=== PATIENT | female | born 1995 | race Caucasian/White ===

== ENCOUNTER 2022-07-24 06:54 | Emergency (ER) | payer OTHER, SELFPAY ==
--- NOTE | ~2022-07-24 | US_ITS ---
EXAMINATION: US RETROPERITONEAL LIMITED (RENAL ONLY) CLINICAL INFORMATION: 5 months with abdominal pain.. COMPARISON: None available. TECHNIQUE: Routine transabdominal imaging of pelvis with attention to the OB segment is performed. Ultrasound transvaginal imaging of kidneys was performed as well. FINDINGS: RETROPERITONEUM: RIGHT KIDNEY: 10.3 x 5.1 x 4.9 cm (SAG x AP x TRV). The kidney is normal in size, contour, and echogenicity. Renal cortical thickness is normal. No calculi or focal parenchymal lesions. No hydronephrosis. LEFT KIDNEY: 10.8 x 4.7 x 4.6 cm (SAG x AP x TRV). The kidney is normal in size, contour, and echogenicity. Renal cortical thickness is normal. No calculi or focal parenchymal lesions. No hydronephrosis. OB ultrasound: There is a single live intrauterine fetus in breech presentation and a heart rate of 1 53 bpm. The placenta is anterior and right lateral within normal limits. There is good movement. The cervix is closed with mucous plug within. US/US OB limited IMPRESSION: 1. Unremarkable renal ultrasound. 2. Single live intrauterine fetus in breech presentation. The cervix is closed with mucous plug within.
--- NOTE | ~2022-07-24 | US_ITS ---
EXAMINATION: US RETROPERITONEAL LIMITED (RENAL ONLY) CLINICAL INFORMATION: 5 months with abdominal pain.. COMPARISON: None available. TECHNIQUE: Routine transabdominal imaging of pelvis with attention to the OB segment is performed. Ultrasound transvaginal imaging of kidneys was performed as well. FINDINGS: RETROPERITONEUM: RIGHT KIDNEY: 10.3 x 5.1 x 4.9 cm (SAG x AP x TRV). The kidney is normal in size, contour, and echogenicity. Renal cortical thickness is normal. No calculi or focal parenchymal lesions. No hydronephrosis. LEFT KIDNEY: 10.8 x 4.7 x 4.6 cm (SAG x AP x TRV). The kidney is normal in size, contour, and echogenicity. Renal cortical thickness is normal. No calculi or focal parenchymal lesions. No hydronephrosis. OB ultrasound: There is a single live intrauterine fetus in breech presentation and a heart rate of 1 53 bpm. The placenta is anterior and right lateral within normal limits. There is good movement. The cervix is closed with mucous plug within. US/US renal BI IMPRESSION: 1. Unremarkable renal ultrasound. 2. Single live intrauterine fetus in breech presentation. The cervix is closed with mucous plug within.
[2022-07-24 07:30] VITALS: BP 131/78; PULSE 97; RESP 16; TEMP 37.3; O2SAT 100; BMI 24.2
--- NOTE | 2022-07-24 08:11 | ED.ABDPAIN ---
HPI - Abdominal Pain General Chief Complaint: Abdominal Pain Stated Complaint: 5 mos preg, pain on L side Time Seen by Provider: 07/24/22 08:02 Source: patient and family Mode of arrival: ambulatory Limitations: no limitations History of Present Illness HPI narrative: A 27-year-old female 5 months with no significance came in for evaluation of left side lower abdominal pain started 5 hours pain is dull aching pain that has been intermittent, and localized to the left side with no radiation, no other associated nausea or vomiting with normal bowel movement, no dysuria, no vaginal bleeding. No significant past surgical history. Related Data Previous Rx's Medication Instructions Recorded cefuroxime axetil 500 mg tablet 500 mg PO Q12H #20 tabs 07/24/22 Allergies Allergy/AdvReac Type Severity Reaction Status Date / Time No Known Allergies Allergy Verified 07/24/22 07:32 Review of Systems Review of Systems All other systems are reviewed and are negative Constitutional: Reports as per HPI and Reports no additional constitutional complaints Eyes: Reports as per HPI and Reports no additional eye complaints Reports system reviewed and no additional complaints, except as documented Cardiovascular: Reports as per HPI and Reports no additional cardiovascular complaints Respiratory: Reports as per HPI and Reports no additional respiratory complaints Gastrointestinal: Reports as per HPI and Reports no additional gastrointestinal complaints Genitourinary: Reports no additional female genitourinary complaints Musculoskeletal: Reports no additional musculoskeletal complaints Skin/Breast: Reports system reviewed and no additional complaints, except as docu Psychiatric: Reports no additional psychiatric complaints Endocrine: Reports no additional endocrine complaints Hematologic/Lymphatic: Reports no additional hematologic/lymphatic complaints Allergic/Immunologic: Reports no additional allergic/immunologic complaints Reports system reviewed and no additional complaints, except as documented and Reports Abnormal speech present [facility] Social History Social History Smoked in Last 30 Days: No Use of substances other than those prescribed or required for medical reasons: No Advance Directives: No Advance Directives Information Provided: No Patient : Yes Physical Exam ED Vital Signs: Vital Signs - 24 hr 07/24/22 07:30 07/24/22 11:46 Temperature 99.2 F 98.1 F Pulse Rate 97 91 Respiratory Rate 16 16 Blood Pressure 131/78 114/67 Pulse Oximetry 100 98 Oxygen Delivery Method Room Air Room Air BMI result Body Mass Index 24.2 Vital signs have been reviewed as appeared to be correct. Blood pressure normal. Heart rate normal. Respiration rate normal. Temperature normal. Oxygen saturation normal. Appearance: Alert. Oriented X3. No acute distress. Head: Normal external exam. Normocephalic. Atraumatic. No Luz signs noted. No raccoon eyes noted Eyes: PERRLA. EOMI. Conjunctiva and sclera normal. Eyelids normal. ENT: TM's Normal. Pharynx normal. Uvula midline. Moist mucous membranes. No trismus noted. No drooling noted. No muffled voice noted. Neck: Normal inspection. Neck supple. FROM. No adenopathy. Thyroid Normal. No meningeal signs. No neck mass noted. CVS: Normal heart rate and rhythm. Heart sound normal. No murmurs noted. Pulses normal throughout. Respiratory: No respiratory distress. Painless inspiration. Breath sounds normal. No wheezes/rales/rhonchi noted. Chest nontender. No accessory muscle usage noted or decreased air movement noted. Abdomen: Soft and nontender. Bowel sounds normal in all 4 quadrants. No distention noted. No organomegaly noted. No visible injury noted. Pelvic exam: Deferred for the ultrasound Back: No CVA tenderness. Full range of motion noted. Skin: Skin warm and dry. Normal skin color. Normal skin turgor. No rashes/lesions/lacerations noted. Extremities: No lower extremity edema. Extremities exhibit normal range of motion. Extremities nontender. Neuro: Oriented X 3. Cranial nerve exam: II-XII are grossly intact No motor deficit. No sensory deficit. Reflexes normal. Course Course Course Narrative: 27-year-old female 20 weeks came in with left pyelonephritis. The case was discussed with Dr. Rod who recommended to admit the patient to [facility], findings were discussed with the patient and explaining risks of premature labor premature rupture membranes can happen with pyelonephritis and usually patient with this finding need an admission for IV antibiotic and -maternal monitoring and observation, family understand the risk but would like to be released and signed against medical advice and they will contact her OB today and take his recommendations. Medical Decision Making Differential Diagnosis Differential Diagnoses: The differential diagnosis associated with the presentation includes (Complicated , pyelonephritis, colitis, UTI, myofascial pain.) Admission/Observation Consideration of admission/observation: Escalation of care including admission/observation considered Consult Healthcare Provider Management of the patient was discussed with: [employer] ([place]) Lab Data MDM Lab Attestation statement: I reviewed the patient's lab results. 07/24/22 08:17 07/24/22 08:17 Labs: Lab Results 07/24/22 07/24/22 07/24/22 Range/Units 08:17 08:17 08:17 WBC 16.3 H (4.8-10.8) X10*3/uL RBC 4.20 (4.20-5.50) X10*6/uL Hgb 12.4 (12.0-16.0) g/dl Hct 37.0 (37.0-47.0) % MCV 88.1 (80.0-98.0) fL MCH 29.5 (27.0-33.0) pg MCHC 33.5 (31.0-35.0) g/dl RDW 13.3 (11.0-16.0) % Plt Count 248 (160-400) X10*3/uL MPV 8.8 L (9.4-12.3) fL Immature Gran % (Auto) 1.3 H (0.0-0.4) % Neut % (Auto) 76.7 H (45-73) % Lymph % (Auto) 15.1 L (20-40) % [place] % (Auto) 5.3 (2-11) % Eos % (Auto) 1.4 (0-4) % Baso % (Auto) 0.2 (0-2) % Lymph # (Auto) 2.5 (1.2-4.9) X10*3/uL [place] # (Auto) 0.9 (0.1-1.2) X10*3/uL Eos # (Auto) 0.2 (0.0-0.4) X10*3/uL Baso # (Auto) 0.0 (0.0-0.2) X10*3/uL Abs Immat Gran (auto) 0.21 H (0.00-0.03) X10*3/uL Absolute Neuts (auto) 12.5 H (2.0-8.3) x10*3/uL Absolute Nucleated RBC 0.000 (0.0-0.012) X10*3/uL Nucleated RBC % (auto) 0.0 (0.0-0.2) /100WBC Sodium 137 (135-145) mmol/L Potassium 3.8 (3.3-5.1) mmol/L Chloride 106 (96-108) mmol/L Carbon Dioxide 20 L (22-29) mmol/L Anion Gap 15 (12-20) BUN 7 L (9-16) mg/dL Creatinine 0.59 (0.5-1.4) mg/dL Estim Creat Clear Calc 122.6 Estimated GFR > 60 Random Glucose 123 H (60-115) mg/dL Calcium 9.5 (8.4-10.2) mg/dL Total Bilirubin 0.6 (0.0-1.0) mg/dL Direct Bilirubin 0.2 (0.0-0.5) mg/dL AST 12 (5-31) U/L ALT 7 (0-31) U/L Alkaline Phosphatase 75 (39-117) U/L Total Protein 6.3 L (6.5-8.0) g/dL Albumin 3.3 L (3.5-5.0) g/dL Lipase 12 (8-78) U/L Beta HCG, Quant 42084 mIU/mL Urine Color Urine Appearance Urine pH (5.0-9.0) Ur Specific [place] (1.005-1.025) Urine Protein (Neg-Trace) mg/dL Urine Glucose (UA) (Negative) mg/dL Urine Ketones (Negative) mg/dL Urine Blood (Negative) Urine Nitrite (Negative) Ur Leukocyte Esterase (Negative) Urine RBC (0-2) /HPF Urine WBC (0-5) /HPF Ur Squamous Epith Cells (0-2) /HPF Urine Bacteria (None Seen) Hyaline Casts (0-2) /LPF Blood Type 07/24/22 07/24/22 Range/Units 08:17 09:57 WBC (4.8-10.8) X10*3/uL RBC (4.20-5.50) X10*6/uL Hgb (12.0-16.0) g/dl Hct (37.0-47.0) % MCV (80.0-98.0) fL MCH (27.0-33.0) pg MCHC (31.0-35.0) g/dl RDW (11.0-16.0) % Plt Count (160-400) X10*3/uL MPV (9.4-12.3) fL Immature Gran % (Auto) (0.0-0.4) % Neut % (Auto) (45-73) % Lymph % (Auto) (20-40) % [place] % (Auto) (2-11) % Eos % (Auto) (0-4) % Baso % (Auto) (0-2) % Lymph # (Auto) (1.2-4.9) X10*3/uL [place] # (Auto) (0.1-1.2) X10*3/uL Eos # (Auto) (0.0-0.4) X10*3/uL Baso # (Auto) (0.0-0.2) X10*3/uL Abs Immat Gran (auto) (0.00-0.03) X10*3/uL Absolute Neuts (auto) (2.0-8.3) x10*3/uL Absolute Nucleated RBC (0.0-0.012) X10*3/uL Nucleated RBC % (auto) (0.0-0.2) /100WBC Sodium (135-145) mmol/L Potassium (3.3-5.1) mmol/L Chloride (96-108) mmol/L Carbon Dioxide (22-29) mmol/L Anion Gap (12-20) BUN (9-16) mg/dL Creatinine (0.5-1.4) mg/dL Estim Creat Clear Calc Estimated GFR Random Glucose (60-115) mg/dL Calcium (8.4-10.2) mg/dL Total Bilirubin (0.0-1.0) mg/dL Direct Bilirubin (0.0-0.5) mg/dL AST (5-31) U/L ALT (0-31) U/L Alkaline Phosphatase (39-117) U/L Total Protein (6.5-8.0) g/dL Albumin (3.5-5.0) g/dL Lipase (8-78) U/L Beta HCG, Quant mIU/mL Urine Color Yellow Urine Appearance Clear Urine pH 6.5 (5.0-9.0) Ur Specific [place] <= 1.005 (1.005-1.025) Urine Protein Trace (Neg-Trace) mg/dL Urine Glucose (UA) Negative (Negative) mg/dL Urine Ketones Negative (Negative) mg/dL Urine Blood Moderate (2+) H (Negative) Urine Nitrite Positive H (Negative) Ur Leukocyte Esterase Moderate (2+) H (Negative) Urine RBC 0-2 (0-2) /HPF Urine WBC 21-50 H (0-5) /HPF Ur Squamous Epith Cells 0-2 (0-2) /HPF Urine Bacteria 3+ (None Seen) Hyaline Casts 0-2 (0-2) /LPF Blood Type O Positive Independent Interpretation I performed an independent interpretation of an: Ultrasound (Ob ultrasound/renal: 1 single IUP. No obstructing stone in both kidneys.) Radiology Impression Discussion of test interpretation with radiology: I have reviewed the radiologist's reading. Medications Administered Discontinued Medications Generic Name Dose Route Start Last Admin Trade Name Freq PRN Reason Stop Dose Admin Sodium Chloride 1,000 mls @ 999 mls/hr 07/24/22 08:02 07/24/22 09:56 Ns IV 07/24/22 09:02 Infused .Q1H1M ONE Infusion Discharge Plan Discharge Clinical Impression: Maternal pyelonephritis, current Patient Disposition: Left Against Medical Advice Instructions: Urinary Tract Infection in (ED) Additional Instructions: Please seek immediate medical attention for fever, chills, severe back pain, contractions, vaginal bleeding. Contact your OBGYN doctor and inform him with today's findings. Prescriptions: New cefuroxime axetil 500 mg tablet 500 mg PO Q12H Qty: 20 0RF
[2022-07-24] MEDS: 0.9 % Sodium Chloride 1,000 ML 999 ML IV ×2 (08:20→12:07)
[2022-07-24 08:22] LABS: MANUAL DIFF FLAG NO
[2022-07-24 08:25] LABS: Basophils Percent Auto 0.2 % (0-2); Eosinophils Absolute Auto 0.2 X10*3/uL (0.0-0.4); Eosinophils Percent Auto 1.4 % (0-4); Hemoglobin 12.4 g/dl (12.0-16.0); Imm Gran Abs Auto 0.21 X10*3/uL (0.00-0.03); Imm Gran Pct Auto 1.3 % (0.0-0.4); Lymphocytes Absolute Auto 2.5 X10*3/uL (1.2-4.9); Lymphocytes Percent Auto 15.1 % (20-40); Mean Corpuscular HGB Conc 33.5 g/dl (31.0-35.0); Mean Corpuscular Hemoglobin 29.5 pg (27.0-33.0); Mean Corpuscular Volume 88.1 fL (80.0-98.0); Mean Platelet Volume 8.8 fL (9.4-12.3); Monocytes Absolute Auto 0.9 X10*3/uL (0.1-1.2); Monocytes Percent Auto 5.3 % (2-11); Neutrophils Absolute Auto 12.5 x10*3/uL (2.0-8.3); Neutrophils Percent Auto 76.7 % (45-73); Platelet Count 248 X10*3/uL (160-400); Red Cell Distribution Width 13.3 % (11.0-16.0); White Blood Count 16.3 X10*3/uL (4.8-10.8)
[2022-07-24 08:42] LABS: Alanine Aminotransferase 7 U/L (0-31); Albumin Level 3.3 g/dL (3.5-5.0); Alkaline Phosphatase 75 U/L (39-117); Anion Gap 15 (12-20); Aspartate Amino Transferase 12 U/L (5-31); Bilirubin Direct 0.2 mg/dL (0.0-0.5); Bilirubin Total 0.6 mg/dL (0.0-1.0); Blood Urea Nitrogen 7 mg/dL (9-16); Calcium 9.5 mg/dL (8.4-10.2); Carbon Dioxide 20 mmol/L (22-29); Chloride 106 mmol/L (96-108); Creatinine Clr Calc Pharmacy 122.6; Estimated Glomerular Filt Rate > 60; Glucose Random 123 mg/dL (60-115); Lipase 12 U/L (8-78); Potassium 3.8 mmol/L (3.3-5.1); Sodium 137 mmol/L (135-145); Total Protein 6.3 g/dL (6.5-8.0)
[2022-07-24 08:47] LABS: HCG Quantitative 13861 mIU/mL
[2022-07-24 10:06] LABS: Appearance Urine Clear; Color Urine Yellow; Glucose Urine UA Negative (Negative); Leukocyte Esterase Urine Moderate (2+) (Negative); Nitrite Urine Positive (Negative); PH 6.5 (5.0-9.0); Specific Gravity - Urine <= 1.005 (1.005-1.025); UMIC TRIGGER UACC YES; Urine Blood Moderate (2+) (Negative); Urine Ketones Negative (Negative); Urine Protein Trace mg/dL (Neg-Trace)
[2022-07-24 10:20] LABS: Bacteria Urine 3+ (None Seen); Hyaline Casts Urine 0-2 /LPF (0-2); RBC Urine 0-2 /HPF (0-2); Squamous Epithelial Cell Urine 0-2 /HPF (0-2); UACC Culture Trigger YES; WBC Urine 21-50 /HPF (0-5)
[2022-07-24 11:46] VITALS: BP 114/67; PULSE 91; RESP 16; TEMP 36.7; O2SAT 98
--- NOTE | 2022-07-24 11:52 | P.CONOB_ITS ---
OB Consult Note - [facility] Data Service Date: 07/24/22 Primary Care Provider: None Physician Narrative I was consulted via [employer] at 11:44 on Sarah Colon who is a 27 year old female at around ? 22 weeks of gestation presented to the emergency room complaining left side lower abdominal pain started 5 hours prior to presentation, the patient describes the pain as dull, aching, intermittent, and localized to the left side with no radiation, no other associated nausea or vomiting, no dysuria, no vaginal leakage of fluid or bleeding. Good movements. The following workup was done emergency room: white count 6K, UA positive for nitrites, white blood cells and RBCs the. Renal ultrasound was unremarkable, OB ultrasound showed a live fetus breech presentation with 153 beats per minute heart rate OB [facility] Social History Social History Smoked in Last 30 Days: No Use of substances other than those prescribed or required for medical reasons: No Advance Directives: No Advance Directives Information Provided: No Patient : Yes Meds Allergies Allergy/AdvReac Type Severity Reaction Status Date / Time No Known Allergies Allergy Verified 07/24/22 07:32 Active Medications: Current Medications Sodium Chloride (Ns) 1,000 mls @ 999 mls/hr IV .Q1H1M ONE Stop: 07/24/22 12:43 Ceftriaxone Sodium 1 gm/ (Sodium Chloride) 50 mls @ 100 mls/hr IV ONCE ONE Stop: 07/24/22 12:12 OB Physical Exam Physical Exam Additional Comments: Abdominal exam reported by Dr. Vu to be as the following: Soft and nontender. Bowel sounds normal in all 4 quadrants. No distention noted.? No organomegaly noted. Evaluation Baseline FHR:: 153 OB Consult Results Labs 07/24/22 08:17 07/24/22 08:17 Labs: Short CBC 07/24/22 Range/Units 08:17 WBC 16.3 H (4.8-10.8) X10*3/uL Hgb 12.4 (12.0-16.0) g/dl Hct 37.0 (37.0-47.0) % Plt Count 248 (160-400) X10*3/uL BMP 07/24/22 08:17 Sodium 137 Potassium 3.8 Chloride 106 Carbon Dioxide 20 L BUN 7 L Creatinine 0.59 Calcium 9.5 Liver Function 07/24/22 Range/Units 08:17 Total Bilirubin 0.6 (0.0-1.0) mg/dL Direct Bilirubin 0.2 (0.0-0.5) mg/dL AST 12 (5-31) U/L ALT 7 (0-31) U/L Alkaline Phosphatase 75 (39-117) U/L Albumin 3.3 L (3.5-5.0) g/dL Urine 07/24/22 Range/Units 09:57 Urine Color Yellow Urine Appearance Clear Urine pH 6.5 (5.0-9.0) Ur Specific [place] <= 1.005 (1.005-1.025) Urine Protein Trace (Neg-Trace) mg/dL Urine Glucose (UA) Negative (Negative) mg/dL OB - CN: A/P Assessment and Plan (1) Maternal pyelonephritis, current : Status: Inactive Plan Recommended the following to Dr. Vu the following: Ceftriaxone 1 g IV now and transfer the patient to [facility] since is there is no maternity unit available at [facility]. I spent a total of 20 minutes reviewing the chart, communicating with the emergency room provider and documenting medical record. Time Spent With Patient Time: Total time managing care of this patient today ____ minutes.
[2022-07-24] MEDS: cefTRIAXone sodium 1 GM in 0.9 % Sodium Chloride 50 ML IV (12:06)
[2022-07-24 13:03] LABS: Lactic Acid 0.7 mmol/L (0.5-2.0)
== END 2022-07-24 13:15 | disposition left against medical advice (07) ==
PROVIDERS: Emergency Provider Emergency Medicine
DX: O23.02 Infections of kidney in pregnancy, second trimester (principal); Z3A.20 20 weeks gestation of pregnancy; Z79.899 Other long term (current) drug therapy
CPT/HCPCS: 36415; 76775; 76815; 80048; 80076; 81001; 83605; 83690; 84702; 85025; 86900; 86901; 87040; 87086; 87088; 87186; 96361; 96374; 99284; J0696